=== PATIENT | male | born 1980 | race Hispanic/Latino ===

== ENCOUNTER 2017-04-09 16:14 | Emergency (ER) | payer BC ==
[2017-04-09 16:24] VITALS: BMI 28.8
[2017-04-09 16:26] VITALS: TEMP 98.6
[2017-04-09] MEDS ORDERED: Sodium Chloride 0.9% 1,000 ML IV STA (16:36)
--- NOTE | 2017-04-09 16:40 | ED PDOC ---
Arrival/HPI - General Chief Complaint: GI Problem Time Seen by Provider: 04/09/17 16:31 Historian: Patient - History of Present Illness Narrative History of Present Illness (Text): 04/09/17 16:37 36 y/o male, pmh including lipoma, nkda, c/o abdominal pain with nausea/vomiting /diarrhea x 2-3 days. Pt. stated that he has upper abdominal pain, associated with nausea and vomiting, combined with watery diarrhea, no recent traveling, no urinary symptoms, no recent use of the antibiotics for the past 6 weeks and no recent traveling to other countries. Pt. stated that he feels fatigue from the diarrhea as well. Pt. has no chest pain or shortness of breath, no palpitation, no other medical or psychological complaints. Past Medical History - Provider Review Nursing Documentation Reviewed: Yes - Infectious Disease Hx of Infectious Diseases: None - Psychiatric Hx Substance Use: No - Surgical History Other/Comment: L wrist surgery - 2 screws in wrist - Anesthesia Hx Anesthesia: Yes Hx Anesthesia Reactions: No Hx Malignant Hyperthermia: No Family/Social History - Physician Review Nursing Documentation Reviewed: Yes Family/Social History: Unknown Family HX Smoking Status: Never Smoked Hx Alcohol Use: Yes Frequency of alcohol use: Socially Hx Substance Use: No Allergies/Home Meds Allergies/Adverse Reactions: Allergies No Known Allergies Allergy (Verified 04/09/17 16:24) Review of Systems - Review of Systems Constitutional: Fatigue. absent: Fevers Eyes: absent: Vision Changes ENT: absent: Hearing Changes Respiratory: absent: SOB, Cough Cardiovascular: absent: Chest Pain Gastrointestinal: Abdominal Pain, Diarrhea, Nausea, Vomiting Genitourinary Male: absent: Dysuria, Frequency Musculoskeletal: absent: Arthralgias, Myalgias Neurological: absent: Headache, Dizziness, Focal Weakness Hemo/Lymphatic: absent: Adenopathy, Easy Bleeding Physical Exam Vital Signs Reviewed: Yes Vital Signs Temp Pulse Resp BP Pulse Ox 04/09/17 22:54 86 16 149/99 H 97 04/09/17 17:51 89 18 168/98 H 98 04/09/17 16:25 98.6 F 99 H 18 185/108 H 98 Temperature: Afebrile Blood Pressure: Hypertensive Pulse: Regular Respiratory Rate: Normal Appearance: Positive for: Well-Appearing, Non-Toxic, Comfortable Pain Distress: Moderate Mental Status: Positive for: Alert and Oriented X 3 - Systems Exam Head: Present: Atraumatic, Normocephalic, Other (no temporal artery tenderness. ) Pupils: Present: PERRL Extroacular Muscles: Present: EOMI Conjunctiva: Present: Normal Ears: Present: NORMAL TM, Normal Canal. No: Erythema Mouth: Present: Moist Mucous Membranes Neck: Present: Normal Range of Motion, Trachea Midline. No: Meningeal Signs, MIDLINE TENDERNESS, Lymphadenopathy Respiratory/Chest: Present: Clear to Auscultation, Good Air Exchange. No: Respiratory Distress, Accessory Muscle Use Cardiovascular: Present: Regular Rate and Rhythm, Normal S1, S2. No: Murmurs Abdomen: Present: Tenderness (+epigastric tenderness and lt. sided abdominal tenderness. ), Normal Bowel Sounds. No: Distention, Peritoneal Signs, Rebound, Guarding, Hernias Back: Present: Normal Inspection Upper Extremity: Present: Normal Inspection. No: Cyanosis, Edema Lower Extremity: Present: Normal Inspection. No: Edema Neurological: Present: GCS=15, Speech Normal, Motor Func Grossly Intact, Gait Normal, Memory Normal Skin: Present: Warm, Dry, Normal Color. No: Rashes Psychiatric: Present: Alert, Oriented x 3, Normal Insight, Normal Concentration Medical Decision Making ED Course and Treatment: 04/09/17 16:41 Cholecystitis vs. colitis vs. diverticulitis vs. pancreatititis vs. gastritis vs. dehydration vs. electrolyte abnormalities. -labs/lipase/ua -CT abdomen and pelvis -Gallbladder sonogram -IVF/pepcid/reglan -Observe and reassess 04/09/17 17:38 -Sonogram of gallbladder: no evidence of cholelithiasis 04/09/17 18:27 -Pt. also complaining about the headache, CT head added due to the elevated BP. 04/09/17 19:34 -Pt. stated that he is anxious of doing CT scan, ativan 1mg IV and morphine ordered for pain. 04/09/17 21:33 -Labs are non-significant except elevation of the LFT -CT abdomen show fat containing hernia with fatty liver -CT head show no acute findings -UA show no acute findings -Pt. feels better with pain mostly resolved, request another dose of medication prior to discharge home. -I discussed all labs and results with the with patient including the CT. 04/09/17 21:43 -Discharge home with prilosec, non-dairy diet for 5 days, BRAT diet, avoid heavy lifting, avoid alcohol and fatty food, avoid straining, follow up with your own pmd including the GI and general surgery for follow up, return to the ER for any new or worsening signs or symptoms. - Lab Interpretations Lab Results: 04/09/17 17:30 04/09/17 17:30 Lab Results 04/09/17 17:52: Urine Color Yellow, Urine Appearance Clear, Urine pH 6.0, Ur Specific [place] >= 1.030, Urine Protein Negative, Urine Glucose (UA) Negative, Urine Ketones Negative, Urine Blood Negative, Urine Nitrate Negative, Urine Bilirubin Negative, Urine Urobilinogen 1.0 H, Ur Leukocyte Esterase Negative 04/09/17 17:30: Sodium 138, Potassium 3.9, Chloride 100, Carbon Dioxide 25, Anion Gap 17, BUN 18, Creatinine 0.9, Est GFR ( Amer) > 60, Est GFR (Non- Af Amer) > 60, Random Glucose 102, Calcium 9.3, Total Bilirubin 1.3, AST 82 H, ALT 104 H, Alkaline Phosphatase 81, Total Protein 8.3, Albumin 4.5, Globulin 3.8 , Albumin/Globulin Ratio 1.2, Lipase 158 04/09/17 17:30: WBC 9.2, RBC 5.51, Hgb 17.8, Hct 50.6, MCV 91.8, MCH 32.7, MCHC 35.6, RDW 13.1, Plt Count 157, MPV 9.5, Gran % 67.1, Lymph % (Auto) 23.2, [place] % (Auto) 7.6 H, Eos % (Auto) 1.7, Baso % (Auto) 0.4, Gran # 6.15, Lymph # 2.1, [place] # 0.7 H, Eos # 0.2, Baso # 0.04 I have reviewed the lab results: Yes Interpretation: Abnormal lab values (elevated LFT) - RAD Interpretation Radiology Orders: 04/09/17 16:36 ABD & PELVIS IV CONTRAST ONLY [CT] Stat 04/09/17 16:38 GALL BLADDER [US] Stat 04/09/17 18:25 HEAD W/O CONTRAST [CT] Stat Gallbladder: no evidence of cholelithiasis CT Abdomen and pelvis: ABDOMEN: Liver: There is a diffuse mild decrease in hepatic parenchymal density, consistent with marked fatty infiltration. Gallbladder and bile ducts: The gallbladder is normal. Pancreas: Unremarkable. No mass. No ductal dilation. Spleen: Unremarkable. No splenomegaly. Adrenals: Unremarkable. No mass. Kidneys and ureters: Unremarkable. No solid mass. No hydronephrosis. Stomach and bowel: Bowel loops appear within normal limits, no signs of wall thickening, mucosal edema, or bowel distention. Appendix: The appendix is not definitively visualized. However, no secondary signs of appendicitis are present. PELVIS: Bladder: Unremarkable. No mass. Reproductive: Unremarkable as visualized. ABDOMEN and PELVIS: Intraperitoneal space: Unremarkable. No free air. No significant fluid collection. Bones/joints: No acute fracture. No dislocation. Soft tissues: Fat-containing right inguinal hernia is present. Small fat- containing paraumbilical hernia is present. Vasculature: Unremarkable. No abdominal aortic aneurysm. Lymph nodes: Unremarkable. No enlarged lymph nodes. IMPRESSION: Diffuse hepatic steatosis is seen. No evidence for bowel herniation, bowel obstruction, colitis, appendicitis or diverticulitis. No gross ureteral stone or obstructive uropathy is visualized. Small fat containing right inguinal and periumbilical hernia. Thank you for allowing us to participate in the care of your patient. Dictated and Authenticated by: Darrell Alvarez MD 04/09/2017 8:57 PM Eastern Time ( & [place]) CT Head: IMPRESSION: No significant abnormalities, no acute intracranial process such as mass, bleed , or acute infarction seen. Thank you for allowing us to participate in the care of your patient. Dictated and Authenticated by: Darrell Alvarez MD 04/09/2017 8:37 PM Eastern Time ( & [place]) Field Applications Specialist: Radiologist - Medication Orders Current Medication Orders: Discontinued Medications Famotidine (Pepcid) 20 mg IVP STAT STA Stop: 04/09/17 16:37 Last Admin: 04/09/17 18:05 Dose: 20 mg Sodium Chloride (Sodium Chloride 0.9%) 1,000 mls @ 999 mls/hr IV .Q1H1M STA Stop: 04/09/17 17:36 Last Admin: 04/09/17 18:06 Dose: 999 mls/hr Iohexol (Omnipaque 350 100 Ml) Confirm Administered Dose 350 mg .ROUTE .STK-MED ONE Stop: 04/09/17 18:01 Lorazepam (Ativan) 1 mg IVP ONCE ONE PRN Reason: Protocol Stop: 04/09/17 19:34 Last Admin: 04/09/17 19:58 Dose: 1 mg Metoclopramide HCl (Reglan) 10 mg IVP STAT STA Stop: 04/09/17 16:37 Last Admin: 04/09/17 18:06 Dose: 10 mg Morphine Sulfate (Morphine) 4 mg IVP STAT STA Stop: 04/09/17 18:26 Last Admin: 04/09/17 18:44 Dose: 4 mg Ondansetron HCl (Zofran Inj) 4 mg IVP STAT STA Stop: 04/09/17 18:26 Last Admin: 04/09/17 18:44 Dose: 4 mg Oxycodone/Acetaminophen (Percocet 5/325 Mg Tab) 1 tab PO STAT STA Stop: 04/09/17 21:44 Last Admin: 04/09/17 22:27 Dose: 1 tab - PA / SWITCHMAN SUPERVISOR / Resident Statement / has reviewed & agrees with the documentation as recorded. / has examined the patient and agrees with the treatment plan. Disposition/Present on Arrival - Present on Arrival Any Indicators Present on Arrival: No History of DVT/PE: No History of Uncontrolled Diabetes: No Urinary Catheter: No History of Decub. Ulcer: No History Surgical Site Infection Following: None - Disposition Have Diagnosis and Disposition been Completed?: Yes Diagnosis: Fatty liver, Abdominal pain, Hernia, Gastroenteritis Disposition: HOME/ ROUTINE Disposition Time: 21:45 Patient Plan: Discharge Condition: IMPROVED Additional Instructions: -Discharge home with prilosec, non-dairy diet for 5 days, BRAT diet, avoid heavy lifting, avoid alcohol and fatty food, avoid straining, follow up with your own pmd including the GI and general surgery for follow up, return to the ER for any new or worsening signs or symptoms. Prescriptions: Omeprazole Magnesium [Prilosec Otc] 20 mg PO DAILY #14 tab Referrals: PCP,NO [Primary Care Provider] - Follow up with primary Alin Plaza MD [Medical Doctor] - Follow up with primary Dalila Jones MD [Medical Doctor] - Follow up with primary [facility] [Outside] - Follow up with primary Forms: [facility] (Romanian), WORK NOTE
--- NOTE | 2017-04-09 17:26 | US ---
HISTORY: Upper abdominal pain COMPARISON: No prior study available for comparison TECHNIQUE: Sonographic evaluation of the right upper quadrant of the abdomen. FINDINGS: LIVER: The liver exhibits normal size measuring approximately 16.2 cm and CC dimension. Liver demonstrates smooth contour however slight increased echotexture suggesting fatty infiltration. Other infiltrative hepatocellular disease process not excluded. No obvious hepatic mass or collection seen on images presented. No gross intrahepatic biliary ductal dilatation. No evidence of ascites GALLBLADDER: The gallbladder is physiologically distended. No evidence of intraluminal gallbladder calculi or sludge. No pericholecystic fluid collections or sonographic Addison sign. COMMON BILE DUCT: Measures approximately 4.6 mm. No evidence of choledocholithiasis. PANCREAS: The pancreas is poorly delineated due to bowel gas. No obvious large pancreatic mass or collection. No significant pancreatic ductal dilatation identified. . RIGHT KIDNEY: Measures approximately 11.8 x 5.4 x 4.6 cm. No evidence shadowing calculi hydronephrosis. No renal mass or collection. AORTA: No aneurysmal dilatation. IVC: Unremarkable. OTHER FINDINGS: None . IMPRESSION: No evidence cholelithiasis. Findings suggest mild fatty hepatic infiltration however other infiltrative hepatocellular disease process not excluded.
[2017-04-09 17:42] LABS: BASO # 0.04 K/mm3 (0.0-2.0); BASO % 0.4 % (0.0-3.0); EOS # 0.2 (0.0-0.7); EOS % 1.7 % (1.5-5.0); GRAN # 6.15 (1.4-6.5); GRAN % 67.1 % (50.0-68.0); HEMOGLOBIN 17.8 gm/dL (14.0-18.0); LYMPH # 2.1 (1.2-3.4); LYMPH % 23.2 % (22.0-35.0); MEAN CELL VOLUME 91.8 fL (80.0-105.0); MEAN CORPUSCULAR HEMOGLOBIN 32.7 pg (25.0-35.0); MEAN CORPUSCULAR HGB CONC 35.6 g/dl (31.0-37.0); MEAN PLATELET VOLUME 9.5 fl (7.0-11.0); MONO # 0.7 (0.1-0.6); MONO % 7.6 % (1.0-6.0); PLATELET COUNT 157 10^3/uL (120.0-450.0); RBC 5.51 10^6/uL (3.5-6.1); RED CELL DISTRIBUTION WIDTH 13.1 % (11.5-14.5); WHITE BLOOD COUNT 9.2 10^3/ul (4.5-11.0)
[2017-04-09 17:54] LABS: ALB/GLOB RATIO 1.2 (1.1-1.8); ALBUMIN 4.5 g/dL (3.0-4.8); ALT/SGPT 104 U/L (7-56); AST/SGOT 82 U/L (15-59); BLOOD UREA NITROGEN 18 mg/dL (7-21); CALCIUM 9.3 mg/dL (8.4-10.5); GFR AFRICAN-AMERICAN > 60; GFR NON-AFRICAN AMERICAN > 60; LIPASE 158 U/L (23-300)
[2017-04-09] MEDS ORDERED: Iohexol 350 MG/100 ML VIAL ONE (18:00)
[2017-04-09 18:05] LABS: URINE BILIRUBIN NEGATIVE (NEGATIVE); URINE BLOOD NEGATIVE (NEGATIVE); URINE GLUCOSE (UA) NEGATIVE (NEGATIVE); URINE LEUKOCYTE ESTERASE NEGATIVE Leu/uL (NEGATIVE); URINE NITRATE NEGATIVE (NEGATIVE)
[2017-04-09 18:06] LABS: URINE APPEARANCE CLEAR (CLEAR); URINE COLOR YELLOW (YELLOW); URINE PROTEIN NEGATIVE mg/dL (<30 mg/dL)
[2017-04-09] MEDS ORDERED: Morphine 4 mg/ml ISec IVP STA (18:25)
[2017-04-09] MEDS ORDERED: Oxycodone/Acetaminophen 5/325 mg Tab PO STA (21:43)
[2017-04-09 22:55] VITALS: BP 149/99; PULSE 86; RESP 16; O2SAT 97
--- NOTE | 2017-04-10 10:04 | CT ---
PROCEDURE: CT HEAD WITHOUT CONTRAST. HISTORY: headache/nausea/vomiting COMPARISON: None available. TECHNIQUE: Axial computed tomography images were obtained through the head/brain without intravenous contrast. Radiation dose: Total exam DLP = 774 mGy-cm. This CT exam was performed using one or more of the following dose reduction techniques: Automated exposure control, adjustment of the mA and/or kV according to patient size, and/or use of iterative reconstruction technique. FINDINGS: HEMORRHAGE: No intracranial hemorrhage identified. BRAIN: No mass effect or edema. Overall [place] and white-matter density above below the tentorium appears normal including throughout the brainstem. VENTRICLES: Unremarkable. No hydrocephalus. CALVARIUM: Unremarkable. PARANASAL SINUSES: Unremarkable as visualized. No significant inflammatory changes. MASTOID AIR CELLS: Unremarkable as visualized. No inflammatory changes. OTHER FINDINGS: None. IMPRESSION: Normal CT of the Head.
--- NOTE | 2017-04-10 10:08 | CT ---
PROCEDURE: CT Abdomen and Pelvis with contrast HISTORY: abdominal pain/vomiting/diarrhea x 2 days COMPARISON: None. TECHNIQUE: Contrast dose: Omnipaque 350, 89 cc Radiation dose: Total exam DLP = 1042 mGy-cm. This CT exam was performed using one or more of the following dose reduction techniques: Automated exposure control, adjustment of the mA and/or kV according to patient size, and/or use of iterative reconstruction technique. FINDINGS: LOWER THORAX: Elevated right hemidiaphragm from an indeterminate etiology. LIVER: T sensation liver separate without definite hepatic mass or intrahepatic biliary duct dilatation GALLBLADDER AND BILE DUCTS: Appears distended but otherwise nonacute. No radiodense cholelithiasis associated. PANCREAS: Unremarkable. No gross lesion or ductal dilatation. SPLEEN: Unremarkable. ADRENALS: Unremarkable. No mass. KIDNEYS AND URETERS: Unremarkable. No hydronephrosis. No solid mass. VASCULATURE: Unremarkable. No aortic aneurysm. BOWEL: Unremarkable. No obstruction. No gross mural thickening. APPENDIX: Normal appendix. PERITONEUM: Unremarkable. No free fluid. No free air. LYMPH NODES: Unremarkable. No enlarged lymph nodes. BLADDER: Unremarkable. REPRODUCTIVE: Unremarkable. BONES: No acute fracture. OTHER FINDINGS: None. IMPRESSION: 1. No acute abdominal or pelvic findings although an elevated right hemidiaphragm is identified of an indeterminate etiology. Clinically correlate. 2. Fatty liver.
== END 2017-04-09 22:55 | disposition home or self-care (01) ==
LOC: ED 16:14
DX: K52.9 Noninfective gastroenteritis and colitis, unspecified (principal); K76.0 Fatty (change of) liver, not elsewhere classified; K46.9 Unspecified abdominal hernia without obstruction or gangrene
CPT/HCPCS: 70450; 74177; 76705; 80053; 81003; 83690; 85025; 96374; 96375; 99284; J2060; J2270; J2405; J2765; J7040; Q9967